=== PATIENT | female | born 1990 | race Caucasian/White ===

== ENCOUNTER 2017-11-08 22:22 | Inpatient (IN) | payer OTHER ==
[~2017-11-08] VITALS: Ht 177.8 cm; Wt 89.5 kg
[2017-11-08] MEDS ORDERED: ONDANSETRON 2MG/ML, 2ML ONE (23:39)
[2017-11-08] MEDS ORDERED: OXYTOCIN 30U/ 0.9% NaCL 500ML 500 ML IV ONE (23:43)
[2017-11-08] MEDS ORDERED: D5%-LACTATED RINGERS 1,000 ML IV SCH (23:43)
[2017-11-08] MEDS ORDERED: PLEASE ENTER ALLERGIES MC SCH (23:45)
[2017-11-08] MEDS ORDERED: MISOPROSTOL 200 MCG TABLET ONE (23:47)
[2017-11-08] MEDS ORDERED: NEWBORN KIT ONE (23:47)
[2017-11-08] MEDS ORDERED: OXYTOCIN 30U/ 0.9% NaCL 500ML 500 ML ONE (23:48)
[2017-11-08] MEDS: LACTATED RINGERS 1,000 ML IV SCH (23:57)
[2017-11-09] MEDS ORDERED: FENTANYL PF 100 MCG/2ML IV PRN
[2017-11-09] MEDS ORDERED: TERBUTALINE 1 MG/ML, 1ML IVPush PRN ×2
[2017-11-09] MEDS ORDERED: ALUMINUM/MAG/SIMETHICONE 30 ML UDC PO PRN
[2017-11-09] MEDS ORDERED: PENICILLIN GK 5,000,000 UNITS in SODIUM CHLORIDE 0.9% 100 ML IVPB ONE
[2017-11-09] MEDS ORDERED: FENTANYL PF 100 MCG/2ML IVPush PRN
[2017-11-09] MEDS ORDERED: TERBUTALINE 1 MG/ML, 1ML SQ PRN
[2017-11-09] MEDS ORDERED: ONDANSETRON 2MG/ML, 2ML IVPush PRN
[2017-11-09] MEDS ORDERED: BETAMETHASONE 6 MG/ML, 5ML IM ONE ×2 (00:02→00:30)
[2017-11-09 00:14] LABS: BASOPHILS # (AUTO) 0.07 x10^3/uL (0-0.1); BASOPHILS % (AUTO) 1 % (0-1); EOSINOPHILS # (AUTO) 0.09 x10^3/uL (0-0.4); EOSINOPHILS % (AUTO) 1 % (1-7); LYMPHOCYTES # (AUTO) 2.61 x10^3/uL (1-3.4); LYMPHOCYTES % (AUTO) 21 % (22-44); MD NO; MEAN CORPUSCULAR HEMOGLOBIN 32.3 pg (27.0-34.8); MEAN CORPUSCULAR HGB CONC 34.2 g/dL (32.4-35.8); MEAN CORPUSCULAR VOLUME 94.5 fL (80-100); MEAN PLATELET VOLUME 8.6 fL (7.4-10.4); MONOCYTES # (AUTO) 0.59 x10^3/uL (0.2-0.8); MONOCYTES % (AUTO) 5 % (2-9); NEUTROPHILS # (AUTO) 9.38 x10^3/uL (1.8-6.8); NEUTROPHILS % (AUTO) 74 % (42-75); PLATELET COUNT 260 x10^3/uL (130-400); RED BLOOD COUNT 4.44 x10^6/uL (3.82-5.3); RED CELL DISTRIBUTION WIDTH 12.5 % (9.6-15.2)
[2017-11-09] MEDS: LACTATED RINGERS 1,000 ML IV SCH ×2 (00:19→01:09)
[2017-11-09] MEDS ORDERED: FENTANYL/BUPIV./NS/PF 250 ML EPIDCONT ONE ×2 (00:24→00:30)
[2017-11-09] MEDS ORDERED: BUPIVACAINE 0.25% ONE (00:24)
[2017-11-09] MEDS ORDERED: TERBUTALINE 1 MG/ML, 1ML ONE (00:51)
[2017-11-09] MEDS ORDERED: SODIUM CITRATE/CITRIC ACID 30 ML UDC ONE (00:52)
[2017-11-09] MEDS ORDERED: METOCLOPRAMIDE 5 MG/ML, 2ML ONE (00:52)
[2017-11-09] MEDS ORDERED: FENTANYL/BUPIV./NS/PF 250 ML EPIDCONT SCH (01:57)
[2017-11-09] MEDS ORDERED: LACTATED RINGERS 1,000 ML IV SCH (01:57)
[2017-11-09] MEDS ORDERED: LACTATED RINGERS 1,000 ML IVBOLUS PRN (02:00)
[2017-11-09] MEDS ORDERED: OXYTOCIN 30U/ 0.9% NaCL 500ML 500 ML IV SCH (02:25)
[2017-11-09] MEDS ORDERED: OXYcodone/APAP 5/325MG TABLET PO PRN ×2 (02:30)
[2017-11-09] MEDS ORDERED: MISOPROSTOL 200 MCG TABLET PR PRN (02:30)
[2017-11-09] MEDS ORDERED: GLYCERIN ADULT SUPP PR PRN (02:30)
[2017-11-09] MEDS ORDERED: IBUPROFEN 800 MG TABLET PO PRN (02:30)
[2017-11-09] MEDS ORDERED: ONDANSETRON 2MG/ML, 2ML IV PRN (02:30)
[2017-11-09] MEDS ORDERED: METHYLERGONOVINE 0.2 MG/ML IM PRN (02:30)
[2017-11-09] MEDS ORDERED: METOCLOPRAMIDE 5 MG/ML, 2ML IV PRN (02:30)
[2017-11-09] MEDS ORDERED: CARBOPROST TROMETHAMINE 250 MCG/ML, 1ML IM PRN (02:30)
[2017-11-09] MEDS ORDERED: BISACODYL 10 MG SUPP PR PRN (02:30)
[2017-11-09 02:51] VITALS: BP 138/93
[2017-11-09 03:30] VITALS: BP 124/86
[2017-11-09] MEDS: PENICILLIN GK 2,500,000 UNITS in DEXTROSE 5% 100 ML IVPB SCH ×2 (04:00)
[2017-11-09] MEDS ORDERED: ONDANSETRON ODT 4 MG PO PRN (08:00)
[2017-11-09] MEDS: DOCUSATE 100 MG CAPSULE PO PRN (08:03)
[2017-11-09] MEDS: PRENATAL VIT/IRON/FA 1 EACH TABLET PO SCH (08:03)
[2017-11-09 08:10] VITALS: BP 119/73
[2017-11-09 10:08] LABS: MEAN CORPUSCULAR HEMOGLOBIN 32.3 pg (27.0-34.8); MEAN CORPUSCULAR HGB CONC 34.1 g/dL (32.4-35.8); MEAN CORPUSCULAR VOLUME 94.6 fL (80-100); MEAN PLATELET VOLUME 8.9 fL (7.4-10.4); PLATELET COUNT 233 x10^3/uL (130-400); RED BLOOD COUNT 4.14 x10^6/uL (3.82-5.3); RED CELL DISTRIBUTION WIDTH 12.5 % (9.6-15.2)
[2017-11-09 10:32] LABS: BASOPHILS # (AUTO) 0.01 x10^3/uL (0-0.1); BASOPHILS % (AUTO) 0 % (0-1); EOSINOPHILS % (AUTO) 0 % (1-7); LYMPHOCYTES % (AUTO) 5 % (22-44); MD SCAN; MONOCYTES # (AUTO) 0.22 x10^3/uL (0.2-0.8); MONOCYTES % (AUTO) 1 % (2-9); NEUTROPHILS % (AUTO) 94 % (42-75)
[2017-11-09 16:00] VITALS: BP 115/74
[2017-11-09] MEDS: IBUPROFEN 600 MG TABLET PO PRN (16:30)
[2017-11-09 19:55] VITALS: BP 131/86
[2017-11-10] MEDS: IBUPROFEN 600 MG TABLET PO PRN ×2 (00:23→08:03)
[2017-11-10 00:28] VITALS: BP 119/74
[2017-11-10 08:00] VITALS: BP 114/78
[2017-11-10] MEDS: DOCUSATE 100 MG CAPSULE PO PRN (08:03)
[2017-11-10] MEDS: PRENATAL VIT/IRON/FA 1 EACH TABLET PO SCH (08:03)
[2017-11-10] MEDS ORDERED: IBUP-1223 PO (11:39)
== END 2017-11-10 14:00 | disposition home or self-care (01) | DRG 775 ==
LOC: LDOP 22:22 → LDIP 23:45 → 2NW 11-09 04:08
PROVIDERS: ADMIT Obstetrics & Gynecology; ATTEND Obstetrics & Gynecology
PROC: 0KQM0ZZ Repair Perineum Muscle, Open Approach (ICD-10-PCS; principal; 2017-11-09)
PROC: 10E0XZZ Delivery of Products of Conception, External Approach (ICD-10-PCS; 2017-11-09)
PROC: 3E0R3BZ Introduction of Anesthetic Agent into Spinal Canal, Percutaneous Approach (ICD-10-PCS; 2017-11-09)
PROC: 00HU33Z Insertion of Infusion Device into Spinal Canal, Percutaneous Approach (ICD-10-PCS; 2017-11-09)
DX: O42.913 Preterm premature rupture of membranes, unspecified as to length of time between rupture and onset of labor, third trimester (principal); O70.1 Second degree perineal laceration during delivery; Z37.0 Single live birth; Z3A.36 36 weeks gestation of pregnancy; Z80.3 Family history of malignant neoplasm of breast
CPT/HCPCS: 36415; 85025; 86850; 86900; 89060; J0702; J2405; J2590; J3010; J7120; Q0114

== ENCOUNTER 2020-01-04 11:57 | Inpatient (IN) | payer OTHER ==
[~2020-01-04] VITALS: Ht 177.8 cm; Wt 88.4 kg
[~2020-01-04 11:57] MED LIST: IBUP-1223 PO
[2020-01-04] MEDS ORDERED: TERBUTALINE 1 MG/ML, 1ML ONE (12:19)
[2020-01-04] MEDS ORDERED: PLEASE ENTER HEIGHT AND WEIGHT MC SCH (12:30)
[2020-01-04] MEDS ORDERED: TERBUTALINE 1 MG/ML, 1ML SQ ONE (12:30)
[2020-01-04 12:56] VITALS: BP 131/60
[2020-01-04] MEDS ORDERED: FOLI0.4T2 PO (13:09)
[2020-01-04] MEDS ORDERED: PREN1TAB10 PV (13:09)
[2020-01-04] MEDS ORDERED: FAMO1TAB3 PO (13:10)
[2020-01-04] MEDS ORDERED: ASPI-515 PO (13:10)
[2020-01-04] MEDS ORDERED: BETAMETHASONE 6 MG/ML, 5ML IM ONE (13:40)
[2020-01-04] MEDS: BETAMETHASONE 6 MG/ML, 5ML IM SCH (13:47)
[2020-01-04] MEDS ORDERED: MAGNESIUM SULF. PMX 20GM/500ML 500 ML IV ONE (14:50)
[2020-01-04] MEDS ORDERED: MAGNESIUM SULFATE PMX 4GM/100M 100 ML ONE (14:50)
[2020-01-04] MEDS ORDERED: MAGNESIUM SULFATE PMX 4GM/100M 100 ML IVPB ONE (15:00)
[2020-01-04] MEDS: LACTATED RINGERS 1,000 ML IV PRN ×2 (15:14→15:40)
[2020-01-04 15:25] LABS: BASOPHILS # (AUTO) 0.04 x10^3/uL (0-0.1); BASOPHILS % (AUTO) 0 % (0-1); EOSINOPHILS # (AUTO) 0.02 x10^3/uL (0-0.4); EOSINOPHILS % (AUTO) 0 % (1-7); LYMPHOCYTES # (AUTO) 1.55 x10^3/uL (1-3.4); LYMPHOCYTES % (AUTO) 15 % (22-44); MD NO; MEAN CORPUSCULAR HEMOGLOBIN 33.2 pg (27.0-34.8); MEAN CORPUSCULAR HGB CONC 33.5 g/dL (32.4-35.8); MEAN PLATELET VOLUME 8.6 fL (7.4-10.4); MONOCYTES # (AUTO) 0.41 x10^3/uL (0.2-0.8); MONOCYTES % (AUTO) 4 % (2-9); NEUTROPHILS # (AUTO) 8.34 x10^3/uL (1.8-6.8); NEUTROPHILS % (AUTO) 81 % (42-75); PLATELET COUNT 227 x10^3/uL (130-400); RED BLOOD COUNT 3.75 x10^6/uL (3.82-5.3); RED CELL DISTRIBUTION WIDTH 13.1 % (9.6-15.2)
[2020-01-04] MEDS: MAGNESIUM SULF. PMX 20GM/500ML 500 ML IV SCH (15:40)
[2020-01-04] MEDS: DOCUSATE 100 MG CAPSULE PO SCH (21:00)
[2020-01-05] MEDS ORDERED: MAGNESIUM SULF. PMX 20GM/500ML 500 ML IV ONE ×3 (01:22→17:52)
[2020-01-05] MEDS: LACTATED RINGERS 1,000 ML IV PRN ×2 (02:07→16:30)
[2020-01-05] MEDS: MAGNESIUM SULF. PMX 20GM/500ML 500 ML IV SCH ×3 (02:07→17:54)
[2020-01-05] MEDS ORDERED: AMPICILLIN 2 GM in SODIUM CHLORIDE 0.9% 100 ML IVPB STA (08:21)
[2020-01-05] MEDS ORDERED: PRENATAL VIT/IRON/FA 1 EACH TABLET PO SCH ×2 (09:00→21:00)
[2020-01-05] MEDS ORDERED: ASPIRIN 81 MG TABLET CHEW PO SCH ×2 (09:00→21:00)
[2020-01-05 09:42] VITALS: BP 122/69
[2020-01-05] MEDS ORDERED: DOCUSATE 100 MG CAPSULE ONE ×2 (10:09→20:37)
[2020-01-05] MEDS: DOCUSATE 100 MG CAPSULE PO SCH ×2 (10:10→20:46)
[2020-01-05] MEDS: AMPICILLIN 1 GM in SODIUM CHLORIDE 0.9% 50 ML IVPB SCH ×3 (12:27→20:32)
[2020-01-05] MEDS: BETAMETHASONE 6 MG/ML, 5ML IM SCH (13:47)
[2020-01-05] MEDS ORDERED: ASPIRIN 81 MG TABLET EC ONE (20:37)
[2020-01-05] MEDS ORDERED: PRENATAL VIT/IRON/FA 1 EACH TABLET ONE (20:37)
[2020-01-05] MEDS ORDERED: ASPIRIN 81 MG TABLET CHEW ONE (20:39)
[2020-01-05] MEDS ORDERED: FOLIC ACID 1 MG TABLET ONE (20:39)
[2020-01-05] MEDS ORDERED: FOLIC ACID 1 MG TABLET PO SCH (21:00)
[2020-01-05 21:22] VITALS: BP 114/56
[2020-01-05] MEDS: C PROGESTERONE HOMEVAG SCH ×2 (22:45→23:35)
[2020-01-06] MEDS: AMPICILLIN 1 GM in SODIUM CHLORIDE 0.9% 50 ML IVPB SCH ×7 (00:03→23:42)
[2020-01-06] MEDS ORDERED: MAGNESIUM SULF. PMX 20GM/500ML 500 ML IV ONE ×2 (00:38→09:06)
[2020-01-06] MEDS: MAGNESIUM SULF. PMX 20GM/500ML 500 ML IV SCH (00:41)
[2020-01-06] MEDS ORDERED: DOCUSATE 100 MG CAPSULE ONE (08:58)
[2020-01-06] MEDS: DOCUSATE 100 MG CAPSULE PO SCH (09:00)
[2020-01-06 09:33] VITALS: BP 112/63
[2020-01-06] MEDS: LACTATED RINGERS 1,000 ML IV PRN ×2 (10:19→23:52)
[2020-01-06] MEDS ORDERED: MAGNESIUM SULF. PMX 20GM/500ML 500 ML IV SCH (15:00)
[2020-01-06 19:37] VITALS: BP 113/66
[2020-01-06] MEDS ORDERED: ASPIRIN HOMEMEDPO SCH (21:00)
[2020-01-06] MEDS ORDERED: FERROUS SULFATE 65 MG HOMEMEDPO SCH (21:00)
[2020-01-06] MEDS ORDERED: COLACE 100 MG HOMEMEDPO SCH (21:00)
[2020-01-06] MEDS ORDERED: PRENATAL VITAMIN HOMEMEDPO SCH (21:00)
[2020-01-06] MEDS ORDERED: DOCUSATE 100 MG CAPSULE PO SCH ×2 (21:00)
[2020-01-06] MEDS ORDERED: FERROUS SULFATE 325 MG TABLET PO SCH (21:00)
[2020-01-06] MEDS ORDERED: [UNRECOGNIZED DRUG - OTHER] HOMEMEDPO SCH (21:00)
[2020-01-06] MEDS ORDERED: FOLIC ACID 1 MG HOMEMEDPO SCH (21:00)
[2020-01-06] MEDS ORDERED: IRON 65 MG HOMEMEDPO SCH (21:00)
[2020-01-06] MEDS: C PROGESTERONE HOMEVAG SCH (22:45)
[2020-01-07] MEDS ORDERED: LACTATED RINGERS 500 ML IVBOLUS ONE (03:30)
[2020-01-07] MEDS ORDERED: MAGNESIUM SULF. PMX 20GM/500ML 500 ML IV ONE ×2 (08:26→17:41)
[2020-01-07] MEDS: COLACE 100 MG HOMEMEDPO SCH ×2 (08:32→20:56)
[2020-01-07] MEDS ORDERED: PRENATAL VIT/IRON/FA 1 EACH TABLET PO SCH (09:00)
[2020-01-07] MEDS ORDERED: ASPIRIN 81 MG TABLET CHEW PO SCH ×2 (09:00)
[2020-01-07] MEDS ORDERED: FOLIC ACID 1 MG TABLET PO SCH ×2 (09:00)
[2020-01-07] MEDS ORDERED: FERR324T5 PO (10:04)
[2020-01-07] MEDS ORDERED: PROG100C16 PO (10:06)
[2020-01-07 10:12] VITALS: BP 118/68
[2020-01-07] MEDS: LACTATED RINGERS 1,000 ML IV PRN (13:57)
[2020-01-07] MEDS: MAGNESIUM SULF. PMX 20GM/500ML 500 ML IV SCH (17:44)
[2020-01-07 19:51] VITALS: BP 120/70
[2020-01-07] MEDS: PRENATAL VITAMIN HOMEMEDPO SCH (20:56)
[2020-01-07] MEDS: IRON 65 MG HOMEMEDPO SCH (20:57)
[2020-01-07] MEDS: [UNRECOGNIZED DRUG - OTHER] HOMEMEDPO SCH (20:57)
[2020-01-07] MEDS: FOLIC ACID 1 MG HOMEMEDPO SCH (20:57)
[2020-01-07] MEDS: ASPIRIN HOMEMEDPO SCH (20:57)
[2020-01-07] MEDS ORDERED: FERROUS SULFATE 325 MG TABLET PO SCH (21:00)
[2020-01-08] MEDS ORDERED: MAGNESIUM SULF. PMX 20GM/500ML 500 ML IV ONE ×3 (00:20→22:47)
[2020-01-08] MEDS: MAGNESIUM SULF. PMX 20GM/500ML 500 ML IV SCH ×3 (01:55→22:51)
[2020-01-08] MEDS: C PROGESTERONE HOMEVAG SCH ×2 (09:00→22:54)
[2020-01-08] MEDS: COLACE 100 MG HOMEMEDPO SCH ×2 (09:00→21:00)
[2020-01-08 09:45] VITALS: BP 121/70
[2020-01-08] MEDS: LACTATED RINGERS 1,000 ML IV PRN (10:50)
[2020-01-08] MEDS ORDERED: PRENATAL VIT/IRON/FA 1 EACH TABLET ONE (20:53)
[2020-01-08] MEDS: FOLIC ACID 1 MG HOMEMEDPO SCH (20:59)
[2020-01-08] MEDS: PRENATAL VITAMIN HOMEMEDPO SCH (21:00)
[2020-01-08] MEDS: [UNRECOGNIZED DRUG - OTHER] HOMEMEDPO SCH (21:00)
[2020-01-08] MEDS: ASPIRIN HOMEMEDPO SCH (21:00)
[2020-01-08] MEDS: IRON 65 MG HOMEMEDPO SCH (21:00)
[2020-01-09] MEDS: COLACE 100 MG HOMEMEDPO SCH ×2 (09:00→21:08)
[2020-01-09] MEDS: SODIUM CHLORIDE FLUSH 3ML SYRINGE IVF SCH (21:02)
[2020-01-09 21:05] VITALS: BP 122/58
[2020-01-09] MEDS: FOLIC ACID 1 MG HOMEMEDPO SCH (21:07)
[2020-01-09] MEDS: PRENATAL VITAMIN HOMEMEDPO SCH (21:08)
[2020-01-09] MEDS: [UNRECOGNIZED DRUG - OTHER] HOMEMEDPO SCH (21:08)
[2020-01-09] MEDS: IRON 65 MG HOMEMEDPO SCH (21:08)
[2020-01-09] MEDS: ASPIRIN HOMEMEDPO SCH (21:08)
[2020-01-09] MEDS: C PROGESTERONE HOMEVAG SCH (23:00)
[2020-01-10 08:08] VITALS: BP 122/72
[2020-01-10] MEDS: SODIUM CHLORIDE FLUSH 3ML SYRINGE IVF SCH ×3 (08:24→21:15)
[2020-01-10] MEDS ORDERED: DOCUSATE 100 MG CAPSULE ONE (08:26)
[2020-01-10] MEDS: COLACE 100 MG HOMEMEDPO SCH ×2 (09:00→21:15)
[2020-01-10 13:51] VITALS: BP 107/57
[2020-01-10] MEDS: ASPIRIN HOMEMEDPO SCH (21:15)
[2020-01-10] MEDS: FOLIC ACID 1 MG HOMEMEDPO SCH (21:15)
[2020-01-10] MEDS: PRENATAL VITAMIN HOMEMEDPO SCH (21:15)
[2020-01-10] MEDS: IRON 65 MG HOMEMEDPO SCH (21:15)
[2020-01-10] MEDS: [UNRECOGNIZED DRUG - OTHER] HOMEMEDPO SCH (21:15)
[2020-01-10] MEDS: C PROGESTERONE HOMEVAG SCH (23:00)
[2020-01-11 08:18] VITALS: BP 121/68
[2020-01-11] MEDS: COLACE 100 MG HOMEMEDPO SCH ×2 (21:00→21:29)
[2020-01-11] MEDS: [UNRECOGNIZED DRUG - OTHER] HOMEMEDPO SCH (21:00)
[2020-01-11] MEDS: PRENATAL VITAMIN HOMEMEDPO SCH (21:00)
[2020-01-11] MEDS: IRON 65 MG HOMEMEDPO SCH (21:00)
[2020-01-11] MEDS: ASPIRIN HOMEMEDPO SCH (21:00)
[2020-01-11] MEDS: FOLIC ACID 1 MG HOMEMEDPO SCH (21:00)
[2020-01-11] MEDS: C PROGESTERONE HOMEVAG SCH (23:00)
[2020-01-12 09:36] VITALS: BP 118/66
[2020-01-12 14:05] VITALS: BP 111/65
[2020-01-12] MEDS ORDERED: ACETAMINOPHEN 500 MG TABLET ONE ×2 (17:03→21:14)
[2020-01-12] MEDS: ACETAMINOPHEN 500 MG TABLET PO PRN ×2 (17:04→21:15)
[2020-01-12] MEDS: COLACE 100 MG HOMEMEDPO SCH (21:00)
[2020-01-13] MEDS: COLACE 100 MG HOMEMEDPO SCH ×3 (09:00→21:00)
[2020-01-13 11:00] VITALS: BP 115/67
[2020-01-13] MEDS: PRENATAL VITAMIN HOMEMEDPO SCH ×2 (20:59→21:00)
[2020-01-13] MEDS: [UNRECOGNIZED DRUG - OTHER] HOMEMEDPO SCH ×2 (20:59→21:00)
[2020-01-13] MEDS: FOLIC ACID 1 MG HOMEMEDPO SCH ×2 (20:59→21:00)
[2020-01-13] MEDS: ASPIRIN HOMEMEDPO SCH ×2 (20:59→21:00)
[2020-01-13] MEDS: IRON 65 MG HOMEMEDPO SCH ×2 (20:59→21:00)
[2020-01-13] MEDS: C PROGESTERONE HOMEVAG SCH (23:32)
[2020-01-14 08:30] VITALS: BP 121/74
[2020-01-14] MEDS: C PROGESTERONE HOMEVAG SCH (09:00)
[2020-01-14] MEDS: COLACE 100 MG HOMEMEDPO SCH ×2 (09:00→20:58)
[2020-01-14] MEDS: FOLIC ACID 1 MG HOMEMEDPO SCH (20:58)
[2020-01-14] MEDS: ASPIRIN HOMEMEDPO SCH (20:58)
[2020-01-14] MEDS: [UNRECOGNIZED DRUG - OTHER] HOMEMEDPO SCH (20:58)
[2020-01-14] MEDS: IRON 65 MG HOMEMEDPO SCH (20:59)
[2020-01-14] MEDS: PRENATAL VITAMIN HOMEMEDPO SCH (20:59)
[2020-01-15] MEDS: COLACE 100 MG HOMEMEDPO SCH ×2 (08:56→21:02)
[2020-01-15 09:00] VITALS: BP 122/66
[2020-01-15] MEDS: PRENATAL VITAMIN HOMEMEDPO SCH (21:02)
[2020-01-15] MEDS: [UNRECOGNIZED DRUG - OTHER] HOMEMEDPO SCH (21:02)
[2020-01-15] MEDS: IRON 65 MG HOMEMEDPO SCH (21:02)
[2020-01-15] MEDS: ASPIRIN HOMEMEDPO SCH (21:02)
[2020-01-15] MEDS: FOLIC ACID 1 MG HOMEMEDPO SCH (21:02)
[2020-01-15] MEDS: C PROGESTERONE HOMEVAG SCH (22:00)
[2020-01-16] MEDS: COLACE 100 MG HOMEMEDPO SCH ×2 (08:52→21:00)
[2020-01-16 08:53] VITALS: BP 119/68
[2020-01-16] MEDS ORDERED: DOCUSATE 100 MG CAPSULE ONE (20:49)
[2020-01-16] MEDS: ASPIRIN HOMEMEDPO SCH (21:00)
[2020-01-16] MEDS: [UNRECOGNIZED DRUG - OTHER] HOMEMEDPO SCH (21:00)
[2020-01-16] MEDS: IRON 65 MG HOMEMEDPO SCH (21:00)
[2020-01-16] MEDS: FOLIC ACID 1 MG HOMEMEDPO SCH (21:00)
[2020-01-16] MEDS: PRENATAL VITAMIN HOMEMEDPO SCH (21:00)
[2020-01-16 21:45] VITALS: BP 116/68
[2020-01-17] MEDS ORDERED: FENTANYL/BUPIV./NS/PF 250 ML EPIDCONT SCH ×2 (03:40→04:43)
[2020-01-17] MEDS ORDERED: OXYTOCIN 30U/ 0.9% NaCL 500ML 500 ML ONE ×2 (03:45→09:52)
[2020-01-17] MEDS ORDERED: MISOPROSTOL 200 MCG TABLET ONE (03:45)
[2020-01-17] MEDS ORDERED: OXYTOCIN 30U/ 0.9% NaCL 500ML 500 ML IV ONE (03:55)
[2020-01-17] MEDS ORDERED: D5%-LACTATED RINGERS 1,000 ML IV SCH (03:55)
[2020-01-17] MEDS ORDERED: LACTATED RINGERS 1,000 ML IV SCH ×2 (03:55→04:43)
[2020-01-17] MEDS ORDERED: FENTANYL PF 100 MCG/2ML IVPush PRN (04:00)
[2020-01-17] MEDS ORDERED: TERBUTALINE 1 MG/ML, 1ML SQ PRN (04:00)
[2020-01-17] MEDS ORDERED: ONDANSETRON 2MG/ML, 2ML IVPush PRN (04:00)
[2020-01-17] MEDS ORDERED: TERBUTALINE 1 MG/ML, 1ML IVPush PRN (04:00)
[2020-01-17] MEDS ORDERED: CALCIUM CARBONATE 500 MG TAB.CHEW PO PRN (04:00)
[2020-01-17] MEDS ORDERED: METOCLOPRAMIDE 5 MG/ML, 2ML IVPush PRN (04:00)
[2020-01-17] MEDS ORDERED: SODIUM CITRATE/CITRIC ACID 30 ML UDC PO PRN (04:00)
[2020-01-17] MEDS ORDERED: ONDANSETRON 2MG/ML, 2ML ONE (04:28)
[2020-01-17] MEDS ORDERED: NEWBORN KIT ONE (04:29)
[2020-01-17 04:46] LABS: BASOPHILS # (AUTO) 0.04 x10^3/uL (0-0.1); BASOPHILS % (AUTO) 0 % (0-1); EOSINOPHILS # (AUTO) 0.13 x10^3/uL (0-0.4); EOSINOPHILS % (AUTO) 1 % (1-7); LYMPHOCYTES # (AUTO) 3.26 x10^3/uL (1-3.4); LYMPHOCYTES % (AUTO) 34 % (22-44); MD NO; MEAN CORPUSCULAR HGB CONC 33.7 g/dL (32.4-35.8); MEAN PLATELET VOLUME 8.7 fL (7.4-10.4); MONOCYTES # (AUTO) 0.47 x10^3/uL (0.2-0.8); MONOCYTES % (AUTO) 5 % (2-9); NEUTROPHILS # (AUTO) 5.61 x10^3/uL (1.8-6.8); NEUTROPHILS % (AUTO) 59 % (42-75); PLATELET COUNT 245 x10^3/uL (130-400); RED BLOOD COUNT 4.03 x10^6/uL (3.82-5.3); RED CELL DISTRIBUTION WIDTH 13.1 % (9.6-15.2)
[2020-01-17] MEDS ORDERED: NALOXONE 0.4 MG/ML, 1ML IVPush PRN (05:00)
[2020-01-17] MEDS ORDERED: LACTATED RINGERS 1,000 ML IVBOLUS PRN (05:00)
[2020-01-17] MEDS ORDERED: EPHEDRINE 50 MG/ML, 1ML IVPush PRN (05:00)
[2020-01-17] MEDS ORDERED: OXYcodone/APAP 5/325MG TABLET PO PRN ×2 (07:30)
[2020-01-17] MEDS ORDERED: DOCUSATE 100 MG CAPSULE PO PRN (07:30)
[2020-01-17] MEDS ORDERED: ACETAMINOPHEN 325 MG TABLET PO PRN ×2 (07:30)
[2020-01-17] MEDS ORDERED: DIPH,PERTUSS(ACELL),TET VAC/PF NC IM-VACC PRN (07:30)
[2020-01-17] MEDS ORDERED: METHYLERGONOVINE 0.2 MG/ML IM PRN (07:30)
[2020-01-17] MEDS ORDERED: MISOPROSTOL 200 MCG TABLET PR PRN (07:30)
[2020-01-17] MEDS ORDERED: CARBOPROST TROMETHAMINE 250 MCG/ML, 1ML IM PRN (07:30)
[2020-01-17] MEDS ORDERED: SIMETHICONE 80 MG CHEW TAB PO PRN (07:30)
[2020-01-17] MEDS ORDERED: IBUPROFEN 600 MG TABLET ONE (07:36)
[2020-01-17] MEDS: IBUPROFEN 600 MG TABLET PO PRN ×3 (07:43→21:59)
[2020-01-17] MEDS: PRENATAL VIT/IRON/FA 1 EACH TABLET PO SCH (09:00)
[2020-01-17] MEDS: COLACE 100 MG HOMEMEDPO SCH ×2 (09:00→20:51)
[2020-01-17] MEDS: OXYTOCIN 30U/ 0.9% NaCL 500ML 500 ML IV SCH ×2 (09:55→17:14)
[2020-01-17 11:55] VITALS: BP 120/80
[2020-01-17 15:20] LABS: MEAN CORPUSCULAR HEMOGLOBIN 33.2 pg (27.0-34.8); MEAN CORPUSCULAR HGB CONC 33.6 g/dL (32.4-35.8); MEAN CORPUSCULAR VOLUME 98.6 fL (80-100); MEAN PLATELET VOLUME 8.8 fL (7.4-10.4); PLATELET COUNT 189 x10^3/uL (130-400); RED BLOOD COUNT 3.98 x10^6/uL (3.82-5.3); RED CELL DISTRIBUTION WIDTH 12.8 % (9.6-15.2)
[2020-01-17 15:55] LABS: BASOPHILS # (AUTO) 0.03 x10^3/uL (0-0.1); BASOPHILS % (AUTO) 0 % (0-1); EOSINOPHILS # (AUTO) 0.08 x10^3/uL (0-0.4); EOSINOPHILS % (AUTO) 1 % (1-7); LYMPHOCYTES # (AUTO) 2.36 x10^3/uL (1-3.4); LYMPHOCYTES % (AUTO) 19 % (22-44); MD SCAN; MONOCYTES # (AUTO) 0.62 x10^3/uL (0.2-0.8); MONOCYTES % (AUTO) 5 % (2-9); NEUTROPHILS # (AUTO) 9.49 x10^3/uL (1.8-6.8); NEUTROPHILS % (AUTO) 75 % (42-75)
[2020-01-17 16:21] VITALS: BP 97/81
[2020-01-17 20:30] VITALS: BP 120/71
[2020-01-17] MEDS: FOLIC ACID 1 MG HOMEMEDPO SCH (20:50)
[2020-01-17] MEDS: PRENATAL VITAMIN HOMEMEDPO SCH (20:51)
[2020-01-17] MEDS: IRON 65 MG HOMEMEDPO SCH (20:51)
[2020-01-18 00:20] VITALS: BP 122/84
[2020-01-18] MEDS: OXYTOCIN 30U/ 0.9% NaCL 500ML 500 ML IV SCH ×3 (02:04→23:14)
[2020-01-18 04:12] VITALS: BP 117/69
[2020-01-18] MEDS: PRENATAL VIT/IRON/FA 1 EACH TABLET PO SCH (08:48)
[2020-01-18] MEDS: COLACE 100 MG HOMEMEDPO SCH ×2 (08:48→21:00)
[2020-01-18 09:08] VITALS: BP 123/77
[2020-01-18] MEDS: IBUPROFEN 600 MG TABLET PO PRN ×2 (16:09→23:57)
[2020-01-18 19:12] VITALS: BP 118/76
[2020-01-18] MEDS: FOLIC ACID 1 MG HOMEMEDPO SCH (21:00)
[2020-01-18] MEDS: IRON 65 MG HOMEMEDPO SCH (21:00)
[2020-01-18] MEDS: PRENATAL VITAMIN HOMEMEDPO SCH (21:00)
[2020-01-19 07:39] VITALS: BP 123/72
[2020-01-19] MEDS: IBUPROFEN 600 MG TABLET PO PRN ×2 (08:07→15:10)
[2020-01-19] MEDS: PRENATAL VIT/IRON/FA 1 EACH TABLET PO SCH (09:00)
[2020-01-19] MEDS: COLACE 100 MG HOMEMEDPO SCH (09:00)
[2020-01-19] MEDS ORDERED: IBUP-1222 PO (12:26)
== END 2020-01-19 16:00 | disposition home or self-care (01) | DRG 805 ==
LOC: LDOP 11:57 → LDIP 13:39 → OBSVTOIN 13:39 → LDIP 01-17 05:07 → 2NW 01-17 10:00
PROVIDERS: ADMIT Obstetrics & Gynecology; ATTEND Obstetrics & Gynecology
PROC: 10E0XZZ Delivery of Products of Conception, External Approach (ICD-10-PCS; principal; 2020-01-17)
PROC: 0KQM0ZZ Repair Perineum Muscle, Open Approach (ICD-10-PCS; 2020-01-17)
PROC: 3E0R3BZ Introduction of Anesthetic Agent into Spinal Canal, Percutaneous Approach (ICD-10-PCS; 2020-01-17)
PROC: 00HU33Z Insertion of Infusion Device into Spinal Canal, Percutaneous Approach (ICD-10-PCS; 2020-01-17)
DX: O42.913 Preterm premature rupture of membranes, unspecified as to length of time between rupture and onset of labor, third trimester (principal); O60.14X0 Preterm labor third trimester with preterm delivery third trimester, not applicable or unspecified; Z37.2 Twins, both liveborn; O30.043 Twin pregnancy, dichorionic/diamniotic, third trimester; O70.1 Second degree perineal laceration during delivery; O69.81X2 Labor and delivery complicated by cord around neck, without compression, fetus 2; Z3A.34 34 weeks gestation of pregnancy
CPT/HCPCS: 36415; J7121; 76805; 76810; 76815; 82803; 83735; 85025; 86592; 86850; 86900; 87081; 88307; G0378; J0290; J0702; J2405; J7120; J2590; J3105; J3475